=== PATIENT | female | born 1980 | race Caucasian/White ===

== ENCOUNTER 2021-01-06 07:33 | Emergency (ER) | payer OTHER ==
[~2021-01-06] VITALS: Ht 165.1 cm; Wt 103.0 kg
[2021-01-06 08:00] LABS: URINE BILIRUBIN NEGATIVE (Negative); URINE BLOOD NEGATIVE (Negative); URINE CLARITY CLEAR; URINE COLOR YELLOW; URINE GLUCOSE-RANDOM NEGATIVE (Negative); URINE KETONES NEGATIVE (Negative); URINE LEUKOCYTES-REFLEX NEGATIVE (Negative); URINE NITRITE-REFLEX NEGATIVE (Negative); URINE PROTEIN NEGATIVE (Negative); URINE UROBILINOGEN 0.2 E.U./dl (0.2-1.0)
[2021-01-06 08:03] LABS: ABSOLUTE BASOPHILS 0.1 thou/uL (0.0-0.2); ABSOLUTE EOSINOPHILS 0.1 thou/uL (0.0-0.7); ABSOLUTE LYMPHOCYTES 1.7 thou/uL (0.8-5.3); ABSOLUTE MONOCYTES 0.9 thou/uL (0.0-1.2); ABSOLUTE NEUTROPHILS 8.5 thou/uL (1.6-8.1); BASOPHILS 0.5 %; EOSINOPHILS 0.6 %; HEMATOCRIT 40.2 % (37.0-47.0); HEMOGLOBIN 13.7 gm/dL (12.0-15.0); LYMPHOCYTES 15.1 %; MCV 94.1 fL (80.0-100.0); MONOCYTES 7.9 %; MPV 7.3 fl. (7.2-11.1); NUCLEATED RBCS 0 /100WBC; PLATELET COUNT* 280 thou/uL (150-400); POLYS 75.9 %; RBC 4.27 mil/uL (4.20-5.00); RDW-CV 12.6 % (10.5-14.5); WBC 11.1 thou/uL (4.0-11.0)
[2021-01-06 08:20] LABS: CALCIUM 8.4 mg/dL (8.5-10.1); CREATININE 0.7 mg/dL (0.6-1.3); POTASSIUM 3.7 mmol/L (3.5-5.1)
[2021-01-06 08:24] LABS: ALBUMIN 3.6 g/dL (3.4-5.0); TOTAL BILIRUBIN 0.6 mg/dL (<0.1-1.0); TOTAL PROTEIN 7.2 g/dL (6.4-8.2)
[2021-01-06] MEDS ORDERED: CIPRO500 M1 PO (09:31)
[2021-01-06] MEDS ORDERED: HYDROCODON-ACE1 EAC7 PO (09:31)
[2021-01-06] MEDS ORDERED: FLAGYL500 M1 PO (09:31)
[2021-01-06 09:47] VITALS: BP 131/68
--- NOTE | 2021-01-06 15:29 | EKG ---
[place] [address] ELECTROCARDIOGRAM REPORT Name: PALLAVI HARRISON Room: [facility]#: [id number] Admission: 01/06/21 Attend Phys: Discharge: 01/06/21 Date of : 82 Date of Service: 01/06/21809 Report #: [id number] THIS REPORT FOR: //name// [facility] ED Test Date: 2021-01-06 Test Time: 08:10:26 Pat Name: PALLAVI HARRISON Department: Room: Gender: F Care Management Associate: DSL : 1980 Requested By: Tremaine Blake Order Number: [id number] MD: Juma Hodge Measurements Intervals [place] Rate: 67 P: 39 AR: 164 QRS: 62 QRSD: 95 T: 30 QT: 444 QTc: 469 Interpretive Statements Sinus rhythm Low voltage, extremity leads No previous ECG available for comparison Electronically Signed On 01-06-2021 15:29:12 CDT by Juma Hodge [email or web address] <ELECTRONICALLY SIGNED> By: Juma Hodge MD, [facility] 01/06/21 1529 0810 0810 Juma Hodge MD, [facility] /EPI
== END 2021-01-06 09:49 | disposition home or self-care (01) ==
LOC: M.ERS 07:33
PROVIDERS: Family Medicine
DX: K57.32 Diverticulitis of large intestine without perforation or abscess without bleeding (principal)